=== PATIENT | female | born 1990 | race African-American/Black ===

== ENCOUNTER → 2017-03-16 | Outpatient (CLI) | payer OTHER ==
[2014-04-23 15:15] VITALS: BP 168/91
--- NOTE | 2017-03-16 12:27 | KCIC ---
2 right femur HISTORY: Left lateral thigh pain for 1.5 months. No known injury. No evidence of an acute fracture. No aggressive bone destruction or periosteal reaction. No evidence of soft tissue abnormality. Limited visualization of the joints demonstrates no obvious abnormality. IMPRESSION: No acute radiographic abnormality. Electronically signed by: Thien Yung MD (03/16/2017 12:24 PM)
== END | disposition home or self-care (01) ==
LOC: KCIC 11:19
PROVIDERS: ATTEND Family Medicine
DX: M79.652 Pain in left thigh (principal)
CPT/HCPCS: 73552

== ENCOUNTER → 2017-03-23 | Outpatient (CLI) | payer OTHER ==
[2014-04-23 15:15] VITALS: BP 168/91
--- NOTE | 2017-03-23 16:17 | RAD ---
Indication: Left leg mass. Sonographic interrogation of the area of palpable fullness in the left upper outer thigh region was performed. No solid or cystic mass is detected. No fluid collection is seen. Impression: No sonographic abnormality is identified. If symptoms persist, MRI would be recommended for further evaluation.
== END | disposition home or self-care (01) ==
LOC: US 08:00
PROVIDERS: ATTEND Family Medicine
DX: R22.42 Localized swelling, mass and lump, left lower limb (principal)
CPT/HCPCS: 76882